=== PATIENT | female | born 1940 | race Hispanic/Latino ===

== ENCOUNTER 2017-07-05 13:24 | Emergency (ER) | payer MEDICARE, OTHER ==
[2017-07-05 13:25] VITALS: BMI 19.7
[2017-07-05 13:34] VITALS: PULSE 78; RESP 18; TEMP 98.6; O2SAT 99
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
[2017-07-05 15:14] VITALS: BP 147/81
--- NOTE | 2017-07-05 22:21 | RAD ---
PROCEDURE: Cervical Spine Radiographs. HISTORY: Pain. COMPARISON: None. FINDINGS: BONES: Alignment maintained. No fracture. Dens Intact. DISC SPACES: Normal. SOFT TISSUES: Normal. No prevertebral soft tissue swelling. OTHER FINDINGS: Multilevel spondylosis. . Dextroscoliosis. IMPRESSION: No fracture.
--- NOTE | 2017-07-05 22:25 | RAD ---
PROCEDURE: Radiographs of the Lumbar Spine. HISTORY: pain COMPARISON: No prior. FINDINGS: BONES: Normal alignment. No listhesis. No fracture. DISC SPACES: Unremarkable. OTHER FINDINGS: None. IMPRESSION: Unremarkable radiographs of the lumbar spine.
== END 2017-07-05 15:13 | disposition home or self-care (01) ==
LOC: H.ER 13:24
DX: S13.4XXA Sprain of ligaments of cervical spine, initial encounter (principal); M54.5 Low back pain; V43.62XA Car passenger injured in collision with other type car in traffic accident, initial encounter; Y92.410 Unspecified street and highway as the place of occurrence of the external cause; E03.9 Hypothyroidism, unspecified; I10 Essential (primary) hypertension